=== PATIENT | female | born 1970 | race Asian ===

== ENCOUNTER 2022-09-21 09:51 | Day surgery (SDC) | payer OTHER ==
[~2022-09-21] VITALS: Ht 152.4 cm; Wt 60.3 kg
[2022-09-21] MEDS ORDERED: LIDOCAINE 2% 100 MG/5 ML UJET TP ONE (12:00)
[2022-09-21] MEDS ORDERED: fentaNYL citrate 0.05 MG/ML VIAL ONE (12:00)
[2022-09-21] MEDS ORDERED: fentaNYL citrate 0.05 MG/ML VIAL IVP ONE (12:55)
== END 2022-09-21 13:12 | disposition home or self-care (01) ==
LOC: MDS 09:51 → MMU 09:52 → MDS 13:12 → EDSEX 13:20
PROVIDERS: ATTEND Internal Medicine Gastroenterology
DX: Z12.11 Encounter for screening for malignant neoplasm of colon (principal); K64.9 Unspecified hemorrhoids; I10 Essential (primary) hypertension; F41.9 Anxiety disorder, unspecified; E78.00 Pure hypercholesterolemia, unspecified; Z87.891 Personal history of nicotine dependence; Z88.8 Allergy status to other drugs, medicaments and biological substances; Z79.82 Long term (current) use of aspirin; Z79.899 Other long term (current) drug therapy
CPT/HCPCS: 45378; 87426; J3010